=== PATIENT | female | born 1935 | race Two or more races ===

== ENCOUNTER 2024-09-27 12:09 | Inpatient (IN) | payer OTHER ==
[~2024-09-27] VITALS: Ht 157.5 cm; Wt 45.4 kg
[2024-09-27] MEDS ORDERED: NAMENDA1 EACH PO (12:34)
[2024-09-27] MEDS ORDERED: HYDROCHLOROTHIA25 MG PO (12:34)
[2024-09-27] MEDS ORDERED: SIMVASTATIN5 MG PO (12:34)
[2024-09-27] MEDS ORDERED: CEFTRIAXONE SODIUM 1,000 MG VIAL IV ONE (13:15)
[2024-09-27] MEDS ORDERED: RINGERS SOLUTION,LACTATED 1,000 ML IV SCH (13:15)
[2024-09-27 14:56] LABS: HEMATOCRIT 35.9 % (36.0-45.00); MEAN CELL VOLUME 89.6 fL (80.00-100.00); MEAN CORPUSCULAR HEMOGLOBIN 29.9 pg (27.00-32.0); MEAN CORPUSCULAR HGB CONC 33.4 g/dl (32.0-36.0); PLATELET COUNT 310 K/uL (150-450); RED BLOOD COUNT 4.01 M/uL (4.00-6.00)
[2024-09-27 15:16] LABS: BILIRUBIN TOTAL 0.23 mg/dL (0.3-1.2); CALCIUM 9.1 mg/dL (8.5-10.1); CREATININE SERUM 0.63 mg/dL (0.55-1.02); GFR 89.18; POTASSIUM 4.99 mEq/L (3.5-5.1)
[2024-09-27 15:55] LABS: URINE APPEARANCE Clear; URINE BILIRRUBIN Negative (NEGATIVE); URINE BLOOD Negative; URINE COLOR Yellow; URINE GLUCOSE Negative (NEGATIVE); URINE KETONE Negative (NEGATIVE); URINE LEUKOCYTE Large; URINE NITRATE Negative; URINE PROTEIN Negative (NEGATIVE)
[2024-09-27 15:58] LABS: URINE BACTERIA 495.5 uL (0.0-1933); URINE EPITHELIAL CELLS 6.1 uL (0.0-38.8); URINE WBC 45.7 uL (0.0-23.2)
[2024-09-27 16:04] LABS: URINE CAST 0.14 uL (0.0-1.40)
[2024-09-27] MEDS ORDERED: 0.9 % SODIUM CHLORIDE 1,000 ML IV SCH (21:15)
[2024-09-27] MEDS ORDERED: MEROPENEM 500 MG/VIAL VIAL IV SCH (21:19)
[2024-09-27] MEDS ORDERED: VANCOMYCIN HCL 1,000 MG VIAL IV SCH (21:20)
[2024-09-27] MEDS ORDERED: ACETAMINOPHEN 500 MG GEL..CAP PO PRN (21:30)
[2024-09-28 01:36] LABS: INR 1.05; PARTIAL THROMBOPLASTIN TIME 23.2 SECONDS (22.0-34.0); PROTHROMBIN TIME 11.4 SECONDS (9.0-11.5)
[2024-09-28 08:00] VITALS: BP 96/50; O2SAT 99
[2024-09-28] MEDS ORDERED: MEMANTINE HCL 5 MG TABLET PO SCH ×2 (09:00→17:00)
[2024-09-28] MEDS ORDERED: ENOXAPARIN SODIUM 40 MG/0.4 ML SYRINGE SUBCUTANEO SCH (09:00)
[2024-09-28] MEDS ORDERED: FAMOTIDINE/PF 20 MG in 0.9 % SODIUM CHLORIDE 8 ML IV PUSH SCH (09:00)
[2024-09-28] MEDS ORDERED: SODIUM HYPOCHLORITE 1OZ TOP SCH (09:35)
[2024-09-28 16:00] VITALS: BP 113/72; O2SAT 97
[2024-09-28] MEDS ORDERED: DONEPEZIL HCL 10 MG TABLET PO SCH (17:00)
[2024-09-28] MEDS ORDERED: SIMVASTATIN 10 MG TABLET PO SCH (17:00)
[2024-09-29 00:30] VITALS: BP 141/78; O2SAT 97
[2024-09-29 08:00] VITALS: BP 96/60; O2SAT 99
[2024-09-29] MEDS ORDERED: CHLORHEXIDINE GLUCONATE 120 ML BOTTLE TOP SCH (09:00)
[2024-09-29 16:27] VITALS: BP 137/80; O2SAT 100
[2024-09-30 01:05] VITALS: BP 95/59; O2SAT 100
[2024-09-30 07:48] LABS: HEMATOCRIT 28.3 % (36.0-45.00); MEAN CELL VOLUME 91.5 fL (80.00-100.00); MEAN CORPUSCULAR HEMOGLOBIN 30.4 pg (27.00-32.0); MEAN CORPUSCULAR HGB CONC 33.2 g/dl (32.0-36.0); PLATELET COUNT 251 K/uL (150-450); RED BLOOD COUNT 3.09 M/uL (4.00-6.00); RED CELL DISTRIBUTION WIDTH 14.7 % (11.5-14.5)
[2024-09-30 07:56] LABS: HEMOGLOBIN 9.4 g/dL (12.0-15.00)
[2024-09-30 08:00] VITALS: BP 108/52; O2SAT 94
[2024-09-30 08:06] LABS: ERYTHROCYTE SEDIMENTATION RATE 96 mm/hr
[2024-09-30 08:49] LABS: ALBUMIN 1.7 gm/dL (3.4-5.0); BILIRUBIN TOTAL 0.26 mg/dL (0.3-1.2); GLOBULINA 3.3 G/DL (2.4-3.5); POTASSIUM 3.95 mEq/L (3.5-5.1)
[2024-09-30 08:54] LABS: CREATININE SERUM 0.29 mg/dL (0.55-1.02); GFR 218.32
[2024-09-30] MEDS ORDERED: FAMOtidine 20 MG TABLET PO SCH (09:00)
[2024-09-30 10:31] LABS: C-REACTIVE PROTEIN 1.63 MG/DL (0.00-0.29)
[2024-09-30 16:00] VITALS: BP 93/50; O2SAT 100
[2024-09-30] MEDS ORDERED: SOD FERRIC GLUC COMPLX/SUCROSE 62.5 MG in 0.9 % SODIUM CHLORIDE 50 ML IV NR (18:00)
[2024-10-01 01:18] VITALS: BP 108/58; O2SAT 95
[2024-10-01 08:00] VITALS: BP 107/60; O2SAT 99
[2024-10-01] MEDS ORDERED: DOXYCYCLINE HYCLATE 100MG IV SCH (11:06)
[2024-10-01] MEDS ORDERED: DOXYCYCLINE HYCLATE 100MG IV ONE ×2 (12:01→15:06)
[2024-10-01 16:00] VITALS: BP 112/37; O2SAT 99
[2024-10-01] MEDS ORDERED: SOD FERRIC GLUC COMPLX/SUCROSE 62.5 MG in 0.9 % SODIUM CHLORIDE 50 ML IV SCH (17:00)
[2024-10-01] MEDS ORDERED: CEFEPIME HCL 1,000 MG VIAL IV SCH (21:00)
[2024-10-02 01:35] VITALS: BP 101/69; O2SAT 97
[2024-10-02] MEDS ORDERED: DOXYCYCLINE HYCLATE 100MG IV ONE ×2 (06:34→16:34)
[2024-10-02 09:28] VITALS: BP 104/66; O2SAT 95
[2024-10-03 00:15] VITALS: BP 118/57; O2SAT 97
[2024-10-03] MEDS ORDERED: DOXYCYCLINE HYCLATE 100MG IV ONE ×2 (07:01→15:59)
[2024-10-03 07:34] LABS: ALBUMIN 1.5 gm/dL (3.4-5.0); BILIRUBIN TOTAL 0.4 mg/dL (0.3-1.2); CALCIUM 7.9 mg/dL (8.5-10.1); GLOBULINA 3.2 G/DL (2.4-3.5); POTASSIUM 3.52 mEq/L (3.5-5.1); TOTAL PROTEIN 4.7 gm/dL (6.4-8.2)
[2024-10-03 07:35] LABS: C-REACTIVE PROTEIN 2.9 MG/DL (0.00-0.29); CREATININE SERUM 0.27 mg/dL (0.55-1.02); GFR 237.08
[2024-10-03 07:54] LABS: HEMATOCRIT 27.1 % (36.0-45.00); HEMOGLOBIN 9.2 g/dL (12.0-15.00); MEAN CORPUSCULAR HEMOGLOBIN 30.6 pg (27.00-32.0); PLATELET COUNT 219 K/uL (150-450); RED BLOOD COUNT 3.01 M/uL (4.00-6.00); RED CELL DISTRIBUTION WIDTH 14.9 % (11.5-14.5)
[2024-10-03 08:00] VITALS: BP 121/48; O2SAT 96
[2024-10-03 08:34] LABS: ERYTHROCYTE SEDIMENTATION RATE 76 mm/hr
[2024-10-03 16:00] VITALS: BP 105/67; O2SAT 100
[2024-10-04 00:28] VITALS: BP 137/97; O2SAT 97
[2024-10-04] MEDS ORDERED: DOXYCYCLINE HYCLATE 100MG IV ONE ×2 (07:34→15:05)
[2024-10-04 08:00] VITALS: BP 104/63; O2SAT 96
[2024-10-04 17:45] VITALS: BP 131/75; O2SAT 100
[2024-10-05 00:17] VITALS: BP 93/55; O2SAT 97
[2024-10-05] MEDS ORDERED: DOXYCYCLINE HYCLATE 100MG IV ONE ×2 (07:16→16:10)
[2024-10-05 10:44] VITALS: BP 114/67; O2SAT 97
[2024-10-05 16:00] VITALS: BP 116/50; O2SAT 97
[2024-10-05] MEDS ORDERED: CEFEPIME HCL 1,000 MG VIAL IV SCH (17:00)
[2024-10-06] VITALS: BP 95/50; O2SAT 97
[2024-10-06] MEDS ORDERED: DOXYCYCLINE HYCLATE 100MG IV ONE ×2 (07:38→16:32)
[2024-10-06 10:29] VITALS: BP 121/66; O2SAT 98
[2024-10-06 17:05] VITALS: BP 106/63; O2SAT 96
[2024-10-07 01:24] VITALS: BP 117/67; O2SAT 97
[2024-10-07] MEDS ORDERED: DOXYCYCLINE HYCLATE 100MG IV ONE ×2 (07:08→15:51)
[2024-10-07 10:23] VITALS: BP 118/67; O2SAT 96
[2024-10-07] MEDS ORDERED: MIDAZOLAM HCL 2 MG/2 ML VIAL IV STA (14:16)
[2024-10-07 16:00] VITALS: BP 127/58; O2SAT 98
[2024-10-08] VITALS: BP 122/65; O2SAT 96
[2024-10-08] MEDS ORDERED: DOXYCYCLINE HYCLATE 100MG IV ONE ×2 (07:38→16:16)
[2024-10-08 08:00] VITALS: BP 111/81; O2SAT 99
[2024-10-08 17:25] VITALS: BP 130/78; O2SAT 98
[2024-10-09 00:46] VITALS: BP 97/61; O2SAT 99
[2024-10-09] MEDS ORDERED: DOXYCYCLINE HYCLATE 100MG IV ONE ×3 (06:31→14:52)
[2024-10-09 07:56] LABS: HEMATOCRIT 26.8 % (36.0-45.00); HEMOGLOBIN 9.1 g/dL (12.0-15.00); MEAN CELL VOLUME 92.6 fL (80.00-100.00); MEAN CORPUSCULAR HEMOGLOBIN 31.4 pg (27.00-32.0); MEAN CORPUSCULAR HGB CONC 33.9 g/dl (32.0-36.0); PLATELET COUNT 264 K/uL (150-450); RED CELL DISTRIBUTION WIDTH 16.2 % (11.5-14.5)
[2024-10-09 08:00] VITALS: BP 101/60; O2SAT 99
[2024-10-09 08:21] LABS: ERYTHROCYTE SEDIMENTATION RATE 57 mm/hr
[2024-10-09 08:29] LABS: ALBUMIN 1.5 gm/dL (3.4-5.0); BILIRUBIN TOTAL 0.37 mg/dL (0.3-1.2); CALCIUM 8.4 mg/dL (8.5-10.1); CREATININE SERUM 0.31 mg/dL (0.55-1.02); GFR 202.15; GLOBULINA 3.4 G/DL (2.4-3.5); POTASSIUM 3.78 mEq/L (3.5-5.1); TOTAL PROTEIN 4.9 gm/dL (6.4-8.2)
[2024-10-09 08:33] LABS: C-REACTIVE PROTEIN 6.33 MG/DL (0.00-0.29)
[2024-10-09 16:10] VITALS: BP 122/67; O2SAT 99
[2024-10-10 01:28] VITALS: BP 110/50; O2SAT 95
[2024-10-10] MEDS ORDERED: DOXYCYCLINE HYCLATE 100MG IV ONE (06:43)
[2024-10-10 08:00] VITALS: BP 200/100; O2SAT 97
[2024-10-10 08:49] VITALS: BP 103/61; O2SAT 100
[2024-10-10 10:57] VITALS: BP 156/82; O2SAT 98
[2024-10-10 16:27] VITALS: BP 100/56; O2SAT 98
[2024-10-10] MEDS ORDERED: DOXYCYCLINE HYCLATE 100MG EACH PO SCH (17:00)
[2024-10-11] VITALS: BP 95/64; O2SAT 98
[2024-10-11 08:00] VITALS: BP 118/63; O2SAT 95
[2024-10-11 17:01] VITALS: BP 104/79; O2SAT 95
[2024-10-12] VITALS: BP 108/61; O2SAT 95
[2024-10-12 08:00] VITALS: BP 126/56; O2SAT 99
[2024-10-12 17:23] VITALS: BP 93/66; O2SAT 96
[2024-10-13 00:18] VITALS: BP 107/63; O2SAT 99
[2024-10-13 08:00] VITALS: BP 130/79; O2SAT 98
[2024-10-13 17:00] VITALS: BP 117/69; O2SAT 99
[2024-10-14 00:54] VITALS: BP 107/67; O2SAT 97
[2024-10-14 11:10] VITALS: BP 108/51; O2SAT 98
[2024-10-14 16:00] VITALS: BP 112/66; O2SAT 97
[2024-10-15 00:29] VITALS: BP 137/63; O2SAT 97
[2024-10-15 08:00] VITALS: BP 138/74; O2SAT 95
[2024-10-15 12:00] VITALS: BP 125/74; O2SAT 96
[2024-10-15 15:00] VITALS: BP 101/59; O2SAT 99
[2024-10-16 00:36] VITALS: BP 119/68; O2SAT 99
[2024-10-16 08:49] VITALS: BP 139/82; O2SAT 95
[2024-10-16 16:00] VITALS: BP 122/61; O2SAT 96
[2024-10-17 00:08] VITALS: BP 108/69; O2SAT 96
[2024-10-17 08:44] VITALS: BP 114/66; O2SAT 97
[2024-10-17 16:19] VITALS: BP 126/66; O2SAT 96
[2024-10-18 08:00] VITALS: BP 129/56; O2SAT 100
[2024-10-18] MEDS ORDERED: ARICEPT10 MG PO (14:09)
[2024-10-18] MEDS ORDERED: SIMVASTATIN10 MG PO (14:09)
[2024-10-18] MEDS ORDERED: FAMOTIDINE20 MG PO (14:09)
[2024-10-18] MEDS ORDERED: NAMENDA 5 MG PO (14:09)
[2024-10-18 16:00] VITALS: BP 102/52; O2SAT 98
[2024-10-20 00:58] VITALS: BP 112/68; O2SAT 96
[2024-10-20 08:00] VITALS: BP 93/51; O2SAT 95
[2024-10-20] MEDS ORDERED: ACETAMINOPHEN 160MG/5 ML BLIST.PACK PO STA (09:21)
[2024-10-20] MEDS ORDERED: ACETAMINOPHEN 160MG/5 ML BLIST.PACK PO ONE (09:56)
[2024-10-20 10:25] LABS: ALBUMIN 1.6 gm/dL (3.4-5.0); BILIRUBIN TOTAL 0.24 mg/dL (0.3-1.2); CALCIUM 7.7 mg/dL (8.5-10.1); CREATININE SERUM 0.39 mg/dL (0.55-1.02); GFR 155.1; GLOBULINA 3.9 G/DL (2.4-3.5); POTASSIUM 4.26 mEq/L (3.5-5.1); TOTAL PROTEIN 5.5 gm/dL (6.4-8.2)
[2024-10-20 10:29] LABS: HEMATOCRIT 29.7 % (36.0-45.00); HEMOGLOBIN 9.9 g/dL (12.0-15.00); MEAN CELL VOLUME 96.8 fL (80.00-100.00); MEAN CORPUSCULAR HEMOGLOBIN 32.1 pg (27.00-32.0); MEAN CORPUSCULAR HGB CONC 33.2 g/dl (32.0-36.0); PLATELET COUNT 210 K/uL (150-450); RED BLOOD COUNT 3.07 M/uL (4.00-6.00)
[2024-10-20 10:33] LABS: RED CELL DISTRIBUTION WIDTH 20.4 % (11.5-14.5)
[2024-10-20] MEDS ORDERED: ACETAMINOPHEN 160MG/5 ML BLIST.PACK PO SCH (12:00)
[2024-10-20 16:00] VITALS: BP 98/55; O2SAT 88
[2024-10-21 01:11] VITALS: BP 95/60; O2SAT 98
[2024-10-21 08:55] VITALS: BP 93/58; O2SAT 96
[2024-10-21] MEDS ORDERED: FLUCONAZOLE IN NACL,ISO-OSM 200 MG/100 ML PIGGYBAG IV STA (12:19)
[2024-10-21] MEDS ORDERED: LINEZOLID IN DEXTROSE 5% 600 MG/300 ML PIGGYBAG IV STA (12:20)
[2024-10-21] MEDS ORDERED: MEROPENEM 500 MG/VIAL VIAL IV SCH (13:00)
[2024-10-21 13:17] LABS: PH,URINE 6.5 (5.0-8.0); URINE APPEARANCE Clear; URINE BACTERIA 31.8 uL (0.0-1933); URINE BILIRRUBIN Negative (NEGATIVE); URINE BLOOD Negative; URINE CAST 2.06 uL (0.0-1.40); URINE COLOR Yellow; URINE EPITHELIAL CELLS 27.3 uL (0.0-38.8); URINE GLUCOSE Negative (NEGATIVE); URINE KETONE Negative (NEGATIVE); URINE LEUKOCYTE Negative; URINE NITRATE Negative; URINE RBC 9.1 uL (0.0-20.8); URINE UROBILINOGEN 0.2 E.U./dl; URINE WBC 16.6 uL (0.0-23.2)
[2024-10-21 13:44] LABS: URINE CRYSTALS FEW /HPF; URINE PROTEIN 100 (NEGATIVE)
[2024-10-21] MEDS ORDERED: LINEZOLID IN DEXTROSE 5% 300 ML IV SCH (21:00)
[2024-10-22] MEDS ORDERED: FLUCONAZOLE IN NACL,ISO-OSM 200 MG/100 ML PIGGYBAG IV SCH (09:00)
== END 2024-10-21 15:16 | disposition home health service (06) | DRG 579 ==
LOC: ER 12:09 → SURH 22:43 → SEC-K 22:43 → SURH 09-28 01:56
PROVIDERS: General Practice; Internal Medicine Infectious Disease; ADMIT Internal Medicine; ATTEND Internal Medicine
PROC: 8E0ZXY6 Isolation (ICD-10-PCS; 2024-09-28)
PROC: 0JD70ZZ Extraction of Back Subcutaneous Tissue and Fascia, Open Approach (ICD-10-PCS; principal; 2024-09-29)
PROC: CP261ZZ Tomographic (Tomo) Nuclear Medicine Imaging of Pelvis using Technetium 99m (Tc-99m) (ICD-10-PCS; 2024-09-29)
PROC: 2W15X6Z Compression of Back using Pressure Dressing (ICD-10-PCS; 2024-09-30)
PROC: 02HV33Z Insertion of Infusion Device into Superior Vena Cava, Percutaneous Approach (ICD-10-PCS; 2024-10-04)
PROC: 0JD70ZZ Extraction of Back Subcutaneous Tissue and Fascia, Open Approach (ICD-10-PCS; 2024-10-06)
PROC: 0JBN0ZX Excision of Right Lower Leg Subcutaneous Tissue and Fascia, Open Approach, Diagnostic (ICD-10-PCS; 2024-10-06)
PROC: 0DJ08ZZ Inspection of Upper Intestinal Tract, Via Natural or Artificial Opening Endoscopic (ICD-10-PCS; 2024-10-07)
PROC: 0DH63UZ Insertion of Feeding Device into Stomach, Percutaneous Approach (ICD-10-PCS; 2024-10-07)
DX: L89.154 Pressure ulcer of sacral region, stage 4 (principal); A41.9 Sepsis, unspecified organism; N39.0 Urinary tract infection, site not specified; E46 Unspecified protein-calorie malnutrition; M86.152 Other acute osteomyelitis, left femur; J98.11 Atelectasis; L97.119 Non-pressure chronic ulcer of right thigh with unspecified severity; L89.213 Pressure ulcer of right hip, stage 3; L08.9 Local infection of the skin and subcutaneous tissue, unspecified; B96.5 Pseudomonas (aeruginosa) (mallei) (pseudomallei) as the cause of diseases classified elsewhere; B96.89 Other specified bacterial agents as the cause of diseases classified elsewhere; G30.9 Alzheimer's disease, unspecified; F02.80 Dementia in other diseases classified elsewhere, unspecified severity, without behavioral disturbance, psychotic disturbance, mood disturbance, and anxiety; E78.5 Hyperlipidemia, unspecified; I10 Essential (primary) hypertension; R13.19 Other dysphagia

== ENCOUNTER 2024-10-22 16:14 | Inpatient (IN) | payer OTHER ==
[~2024-10-22] VITALS: Ht 152.4 cm; Wt 45.4 kg
[~2024-10-22 16:14] MED LIST: ARICEPT10 MG PO; FAMOTIDINE20 MG PO; HYDROCHLOROTHIA25 MG PO; NAMENDA 5 MG PO; NAMENDA1 EACH PO; SIMVASTATIN10 MG PO; SIMVASTATIN5 MG PO
[2024-10-22 16:54] LABS: ABG pCO2 31.7 mmHg (35-45); BASE EXCESS 1.1 mmol/l; BICARBONATE 23.6 mmol/l (23-25); Tco2 24.6 mmol/l
[2024-10-22 17:35] LABS: ABG PO2 50.9 mmHg (80-100); allen test NO SATISFACTORY; mode ROOM AIR; o2 21 %; puncture site RADIAL LEFT
[2024-10-22 18:52] LABS: ERYTHROCYTE SEDIMENTATION RATE > 130 mm/hr
[2024-10-22 18:57] LABS: HEMOGLOBIN 9.8 g/dL (12.0-15.00); MEAN CELL VOLUME 94.1 fL (80.00-100.00); MEAN CORPUSCULAR HEMOGLOBIN 31.7 pg (27.00-32.0); MEAN CORPUSCULAR HGB CONC 33.7 g/dl (32.0-36.0); PLATELET COUNT 214 K/uL (150-450); RED BLOOD COUNT 3.09 M/uL (4.00-6.00); RED CELL DISTRIBUTION WIDTH 20.2 % (11.5-14.5)
[2024-10-22 19:03] LABS: INR 0.96; PARTIAL THROMBOPLASTIN TIME 32.1 SECONDS (22.0-34.0); PROTHROMBIN TIME 10.5 SECONDS (9.0-11.5)
[2024-10-22 19:08] LABS: URINE APPEARANCE Clear; URINE BILIRRUBIN Negative (NEGATIVE); URINE BLOOD Negative; URINE COLOR Yellow; URINE GLUCOSE Negative (NEGATIVE); URINE KETONE 15 (NEGATIVE); URINE LEUKOCYTE Negative; URINE NITRATE Negative
[2024-10-22 19:11] LABS: URINE BACTERIA 35.4 uL (0.0-1933); URINE CAST 6.77 uL (0.0-1.40); URINE EPITHELIAL CELLS 21.2 uL (0.0-38.8); URINE RBC 8.5 uL (0.0-20.8); URINE WBC 14.2 uL (0.0-23.2)
[2024-10-22 19:13] LABS: ALBUMIN 1.4 gm/dL (3.4-5.0); BILIRUBIN TOTAL 0.2 mg/dL (0.3-1.2); GLOBULINA 4.6 G/DL (2.4-3.5); POTASSIUM 3.79 mEq/L (3.5-5.1)
[2024-10-22 19:14] LABS: COVID-19 AG NEGATIVE (NEGATIVE)
[2024-10-22 19:15] LABS: C-REACTIVE PROTEIN 4.81 MG/DL (0.00-0.29); CREATININE SERUM 0.28 mg/dL (0.55-1.02); GFR 227.35
[2024-10-22 19:21] LABS: URINE PROTEIN 100 (NEGATIVE)
[2024-10-22 19:26] LABS: INFLUENZA A AG POSITIVE (NEGATIVE)
[2024-10-22] MEDS ORDERED: MEROPENEM 500 MG/VIAL VIAL IV SCH (21:29)
[2024-10-22] MEDS ORDERED: LINEZOLID IN DEXTROSE 5% 300 ML IV SCH (21:29)
[2024-10-22] MEDS ORDERED: ACETAMINOPHEN 500 MG GEL..CAP PO PRN (21:30)
[2024-10-22] MEDS ORDERED: IPRATROPIUM BROMIDE 0.5 MG/2.5 ML AMPUL.NEB IH SCH (21:33)
[2024-10-23] VITALS (14 sets, daily range): BP systolic 82–115; BP diastolic 35–56; O2SAT 94–100
[2024-10-23] MEDS ORDERED: FAMOTIDINE/PF 20 MG in 0.9 % SODIUM CHLORIDE 8 ML IV PUSH SCH (09:00)
[2024-10-23] MEDS ORDERED: MEMANTINE HCL 10 MG TABLET PO SCH (09:00)
[2024-10-23] MEDS ORDERED: FLUCONAZOLE IN NACL,ISO-OSM 200 MG/100 ML PIGGYBAG IV STA (15:54)
[2024-10-23] MEDS ORDERED: SIMVASTATIN 10 MG TABLET PO SCH (17:00)
[2024-10-23] MEDS ORDERED: DEXTROSE 50 % IN WATER 0.5 G/ML VIAL IV ONE (17:17)
[2024-10-23] MEDS ORDERED: AMINO ACIDS/PROTEIN HYDROLYS 30 ML BLIST.PACK PO SCH (17:43)
[2024-10-24] VITALS (13 sets, daily range): BP systolic 100–132; BP diastolic 43–66; O2SAT 95–100
[2024-10-24] MEDS ORDERED: CHLORHEXIDINE GLUCONATE 120 ML BOTTLE TOP ONE (08:33)
[2024-10-24] MEDS ORDERED: FOLIC ACID 5 MG/ML VIAL IV SCH (09:00)
[2024-10-24] MEDS ORDERED: SOD FERRIC GLUC COMPLX/SUCROSE 62.5 MG in 0.9 % SODIUM CHLORIDE 50 ML IV SCH (09:00)
[2024-10-24] MEDS ORDERED: CHLORHEXIDINE GLUCONATE 120 ML BOTTLE TOP SCH (09:00)
[2024-10-24] MEDS ORDERED: FLUCONAZOLE IN NACL,ISO-OSM 200 MG/100 ML PIGGYBAG IV SCH (17:00)
[2024-10-24] MEDS ORDERED: OSELTAMIVIR PHOSPHATE 75 MG CAPSULE PO SCH (21:00)
[2024-10-25] VITALS (8 sets, daily range): BP systolic 100–110; BP diastolic 44–80; O2SAT 94–100
[2024-10-25 06:23] LABS: HEMATOCRIT 30.2 % (36.0-45.00); HEMOGLOBIN 10.2 g/dL (12.0-15.00); MEAN CELL VOLUME 94.4 fL (80.00-100.00); MEAN CORPUSCULAR HEMOGLOBIN 31.7 pg (27.00-32.0); MEAN CORPUSCULAR HGB CONC 33.6 g/dl (32.0-36.0); PLATELET COUNT 161 K/uL (150-450); RED CELL DISTRIBUTION WIDTH 19.5 % (11.5-14.5)
[2024-10-25 06:59] LABS: ALBUMIN 1.3 gm/dL (3.4-5.0); BILIRUBIN TOTAL 0.32 mg/dL (0.3-1.2); CALCIUM 7.8 mg/dL (8.5-10.1); GFR 433.65; GLOBULINA 3.7 G/DL (2.4-3.5); POTASSIUM 3.83 mEq/L (3.5-5.1)
[2024-10-25 07:03] LABS: CREATININE SERUM 0.16 mg/dL (0.55-1.02)
[2024-10-25] MEDS ORDERED: OSELTAMIVIR PHOSPHATE 30MG CAP PO NR (12:15)
[2024-10-25] MEDS ORDERED: CEFTAZIDIME/AVIBACTAM 1.25GM/100ML NSS PB IV SCH (13:00)
[2024-10-25] MEDS ORDERED: METRONIDAZOLE/SODIUM CHLORIDE 500 MG/100 ML PIGGYBACK IV SCH (17:00)
[2024-10-26] VITALS (9 sets, daily range): BP systolic 103–134; BP diastolic 50–73; O2SAT 90–100
[2024-10-26] MEDS ORDERED: OSELTAMIVIR PHOSPHATE 30MG CAP PO SCH (17:00)
[2024-10-26] MEDS ORDERED: (FF) Daptomycin 50 MG/ML IV SCH (17:00)
[2024-10-27] VITALS (7 sets, daily range): BP systolic 93–120; BP diastolic 52–56; O2SAT 94–100
[2024-10-27] MEDS ORDERED: LACTOBACILLUS ACIDOPHILUS 1 CAP CAP PO SCH (17:00)
[2024-10-28] VITALS (9 sets, daily range): BP systolic 93–135; BP diastolic 56–79; O2SAT 89–100
[2024-10-28] MEDS ORDERED: FUROsemide 20 MG/2 ML VIAL IV SCH (12:25)
[2024-10-28] MEDS ORDERED: 0.9 % SODIUM CHLORIDE 10 ML VIAL IJ ONE (15:56)
[2024-10-28] MEDS ORDERED: METOPROLOL SUCCINATE 25 MG TAB.SR.24H PO SCH (21:00)
[2024-10-29] VITALS (7 sets, daily range): BP systolic 98–103; BP diastolic 40–64; O2SAT 96–99
[2024-10-29 07:36] LABS: ALBUMIN 1.2 gm/dL (3.4-5.0); BILIRUBIN TOTAL 0.17 mg/dL (0.3-1.2); C-REACTIVE PROTEIN 6.57 MG/DL (0.00-0.29); CALCIUM 7.1 mg/dL (8.5-10.1); GFR 285.29; GLOBULINA 3.5 G/DL (2.4-3.5); POTASSIUM 3.47 mEq/L (3.5-5.1); TOTAL PROTEIN 4.7 gm/dL (6.4-8.2)
[2024-10-29 07:37] LABS: CREATININE SERUM 0.23 mg/dL (0.55-1.02)
[2024-10-29] MEDS ORDERED: POTASSIUM CHLORIDE IN WATER 100 ML IV NR (11:00)
[2024-10-29] MEDS ORDERED: CALCIUM CARBONATE/VITAMIN D3 1 TAB TABLET PO SCH (13:00)
[2024-10-30 03:03] VITALS: BP 109/63; O2SAT 99
[2024-10-30 09:35] LABS: ALBUMIN 1.3 gm/dL (3.4-5.0); BILIRUBIN TOTAL 0.21 mg/dL (0.3-1.2); CALCIUM 7.8 mg/dL (8.5-10.1); CREATININE SERUM 0.31 mg/dL (0.55-1.02); GFR 202.15; GLOBULINA 3.8 G/DL (2.4-3.5); POTASSIUM 4.21 mEq/L (3.5-5.1); TOTAL PROTEIN 5.1 gm/dL (6.4-8.2)
[2024-10-30 10:16] LABS: HEMOGLOBIN 10.8 g/dL (12.0-15.00); MEAN CORPUSCULAR HEMOGLOBIN 31.1 pg (27.00-32.0); RED BLOOD COUNT 3.47 M/uL (4.00-6.00)
[2024-10-30 10:17] LABS: HEMATOCRIT 32.6 % (36.0-45.00); MEAN CORPUSCULAR HGB CONC 33.1 g/dl (32.0-36.0); PLATELET COUNT 178 K/uL (150-450); RED CELL DISTRIBUTION WIDTH 20.3 % (11.5-14.5)
[2024-10-30 10:26] LABS: ERYTHROCYTE SEDIMENTATION RATE 64 mm/hr
[2024-10-30 17:46] VITALS: O2SAT 96
[2024-10-30 18:43] VITALS: BP 111/58
[2024-10-30 20:38] VITALS: O2SAT 97
[2024-10-31] VITALS (11 sets, daily range): BP systolic 91–124; BP diastolic 47–63; O2SAT 87–99
[2024-10-31] MEDS ORDERED: 0.9 % SODIUM CHLORIDE 500 ML IV ONE (17:30)
[2024-10-31 21:16] LABS: ABG PH 7.532 (7.35-7.45); ABG pCO2 40.2 mmHg (35-45); BASE EXCESS 9.5 mmol/l; SaO2 92.8 %; Tco2 34.2 mmol/l
[2024-10-31] MEDS ORDERED: NOREPINEPHRINE BITARTRATE 1 MG/ML AMPUL IV ONE (23:59)
[2024-11-01] VITALS (14 sets, daily range): BP systolic 78–143; BP diastolic 42–92; O2SAT 96–100
[2024-11-01 00:02] LABS: ABG PO2 55.6 mmHg (80-100); allen test SATISFACTORY; mode NASAL CANNULA; o2 28 %; puncture site RADIAL RIGHT
[2024-11-01] MEDS ORDERED: NOREPINEPHRINE BITARTRATE 1 MG/ML AMPUL IV SCH (00:30)
[2024-11-01] MEDS ORDERED: FUROsemide 20 MG/2 ML VIAL IV SCH (01:00)
[2024-11-01] MEDS ORDERED: AMIODARONE HCL 50 MG/ML AMPUL IV ONE (01:45)
[2024-11-01 09:26] LABS: HEMATOCRIT 30.2 % (36.0-45.00); HEMOGLOBIN 9.6 g/dL (12.0-15.00); MEAN CELL VOLUME 96.2 fL (80.00-100.00); MEAN CORPUSCULAR HEMOGLOBIN 30.6 pg (27.00-32.0); MEAN CORPUSCULAR HGB CONC 31.8 g/dl (32.0-36.0); PLATELET COUNT 234 K/uL (150-450); RED BLOOD COUNT 3.14 M/uL (4.00-6.00); RED CELL DISTRIBUTION WIDTH 20.8 % (11.5-14.5)
[2024-11-01 11:09] LABS: ALBUMIN 1.3 gm/dL (3.4-5.0); BILIRUBIN TOTAL 0.13 mg/dL (0.3-1.2); CREATININE SERUM 0.47 mg/dL (0.55-1.02); GFR 125.06; GLOBULINA 3.7 G/DL (2.4-3.5); MAGNESIUM 2.1 mg/dL (1.8-2.4); POTASSIUM 3.92 mEq/L (3.5-5.1)
[2024-11-01] MEDS ORDERED: POTASSIUM PHOS,M-BASIC-D-BASIC 45mM/15ml VIAL IV NR (13:30)
[2024-11-01 16:27] LABS: TSH 1.33 uIU/mL (0.358-3.74)
[2024-11-01] MEDS ORDERED: FLUCONAZOLE IN NACL,ISO-OSM 200 MG/100 ML PIGGYBAG IV SCH (18:00)
[2024-11-02] VITALS (18 sets, daily range): BP systolic 70–124; BP diastolic 42–77; O2SAT 95–100
[2024-11-02 07:06] LABS: PH,URINE 6.5 (5.0-8.0); URINE APPEARANCE Turbid; URINE BILIRRUBIN Negative (NEGATIVE); URINE BLOOD Small; URINE COLOR Yellow; URINE GLUCOSE Negative (NEGATIVE); URINE KETONE Negative (NEGATIVE); URINE LEUKOCYTE Small; URINE NITRATE Negative; URINE PROTEIN 30 (NEGATIVE); URINE UROBILINOGEN 0.2 E.U./dl
[2024-11-02 07:08] LABS: URINE BACTERIA 370.8 uL (0.0-1933); URINE CAST 13.84 uL (0.0-1.40); URINE EPITHELIAL CELLS 105.6 uL (0.0-38.8); URINE RBC 79.6 uL (0.0-20.8); URINE WBC 55.8 uL (0.0-23.2)
[2024-11-02] MEDS ORDERED: NOREPINEPHRINE BITARTRATE 4 MG in DEXTROSE 5 % IN WATER 250 ML IV SCH (07:15)
[2024-11-02 07:20] LABS: URINE CRYSTALS FEW /HPF
[2024-11-02] MEDS ORDERED: FLUCONAZOLE IN NACL,ISO-OSM 100 ML IV SCH (09:00)
[2024-11-02] MEDS ORDERED: AMIODARONE HCL 200 MG TABLET PO SCH (09:00)
[2024-11-03] VITALS (11 sets, daily range): BP systolic 121–148; BP diastolic 71–83; O2SAT 98–100
[2024-11-03] MEDS ORDERED: SULFAMETHOXAZOLE/TRIMETHOPRIM 16 MG/ML 10ML VIAL IV SCH ×2 (13:00→21:00)
[2024-11-03] MEDS ORDERED: GUAIFEN/DEXTROMETHORPHAN/PE 10 ML BLIST.PACK PO SCH (17:00)
[2024-11-04 02:03] VITALS: BP 149/75; O2SAT 100
[2024-11-04 02:58] VITALS: O2SAT 100
[2024-11-04 13:58] VITALS: O2SAT 100
[2024-11-04 17:00] VITALS: O2SAT 96
[2024-11-04 18:15] VITALS: BP 104/64; O2SAT 96
[2024-11-04 21:00] VITALS: O2SAT 99
[2024-11-05] VITALS (10 sets, daily range): BP systolic 97–137; BP diastolic 53–73; O2SAT 90–99
[2024-11-05 06:50] LABS: HEMATOCRIT 29.2 % (36.0-45.00); HEMOGLOBIN 9.5 g/dL (12.0-15.00); MEAN CELL VOLUME 94.3 fL (80.00-100.00); MEAN CORPUSCULAR HEMOGLOBIN 30.6 pg (27.00-32.0); MEAN CORPUSCULAR HGB CONC 32.5 g/dl (32.0-36.0); PLATELET COUNT 284 K/uL (150-450); RED BLOOD COUNT 3.09 M/uL (4.00-6.00); RED CELL DISTRIBUTION WIDTH 20.7 % (11.5-14.5)
[2024-11-06] VITALS (11 sets, daily range): BP systolic 98–123; BP diastolic 30–80; O2SAT 90–96
[2024-11-07] VITALS (11 sets, daily range): BP systolic 93–126; BP diastolic 42–69; O2SAT 73–98
[2024-11-07 18:31] LABS: BASE EXCESS 5.3 mmol/l; Tco2 46.9 mmol/l
[2024-11-07 18:38] LABS: ABG PO2 42.6 mmHg (80-100); ABG pCO2 158.9 mmHg (35-45); SaO2 54.7 %
[2024-11-07 18:39] LABS: allen test NO SATISFACTORY; mode NON REBREATHING MASK; o2 100 %; puncture site RADIAL RIGHT
== END 2024-11-07 21:05 | disposition expired | DRG 853 ==
LOC: ER 16:14 → ICU-2 10-23 00:21 → MEDJ 10-24 18:08
PROVIDERS: General Practice; Internal Medicine; Internal Medicine Geriatric Medicine; Internal Medicine Infectious Disease; ADMIT Internal Medicine; ATTEND Internal Medicine
PROC: B24BZZZ Ultrasonography of Heart with Aorta (ICD-10-PCS; 2024-10-22)
PROC: BW24ZZZ Computerized Tomography (CT Scan) of Chest and Abdomen (ICD-10-PCS; 2024-10-22)
PROC: 8E0ZXY6 Isolation (ICD-10-PCS; 2024-10-24)
PROC: 4A12X4Z Monitoring of Cardiac Electrical Activity, External Approach (ICD-10-PCS; 2024-10-24)
PROC: 0JD70ZZ Extraction of Back Subcutaneous Tissue and Fascia, Open Approach (ICD-10-PCS; principal; 2024-10-25)
PROC: 0JD70ZZ Extraction of Back Subcutaneous Tissue and Fascia, Open Approach (ICD-10-PCS; 2024-10-25)
PROC: B54NZZZ Ultrasonography of Left Upper Extremity Veins (ICD-10-PCS; 2024-10-31)
DX: A41.52 Sepsis due to Pseudomonas (principal); I21.4 Non-ST elevation (NSTEMI) myocardial infarction; J96.01 Acute respiratory failure with hypoxia; J18.9 Pneumonia, unspecified organism; R65.21 Severe sepsis with septic shock; M46.28 Osteomyelitis of vertebra, sacral and sacrococcygeal region; I24.9 Acute ischemic heart disease, unspecified; I50.30 Unspecified diastolic (congestive) heart failure; E46 Unspecified protein-calorie malnutrition; G30.9 Alzheimer's disease, unspecified; F02.80 Dementia in other diseases classified elsewhere, unspecified severity, without behavioral disturbance, psychotic disturbance, mood disturbance, and anxiety; J10.1 Influenza due to other identified influenza virus with other respiratory manifestations; E78.5 Hyperlipidemia, unspecified; L97.529 Non-pressure chronic ulcer of other part of left foot with unspecified severity; L08.9 Local infection of the skin and subcutaneous tissue, unspecified; L97.519 Non-pressure chronic ulcer of other part of right foot with unspecified severity; B96.1 Klebsiella pneumoniae [K. pneumoniae] as the cause of diseases classified elsewhere; B96.5 Pseudomonas (aeruginosa) (mallei) (pseudomallei) as the cause of diseases classified elsewhere; B95.2 Enterococcus as the cause of diseases classified elsewhere; B96.89 Other specified bacterial agents as the cause of diseases classified elsewhere; I35.0 Nonrheumatic aortic (valve) stenosis; R13.19 Other dysphagia; I25.10 Atherosclerotic heart disease of native coronary artery without angina pectoris; I11.0 Hypertensive heart disease with heart failure; E87.6 Hypokalemia